=== PATIENT | male | born 2000 | race Caucasian/White ===

== ENCOUNTER 2023-02-06 13:32 | Outpatient (AMB) | payer BC, SELFPAY ==
--- NOTE | 2023-02-06 15:58 | MHC.OFFWIV ---
Intake Vital Signs 02/06/23 16:07 Height 6 ft 3 in Weight 202 lb 8 oz BMI 25.3 BP 132/66 Blood Pressure Location Lt brachial Position Sitting Pulse 91 Pulse Source Pulse Oximeter Temp 98.1 F Temp Source Oral Pulse Oximetry (%) 99 Oxygen Delivery Method Room Air Intake Visit Reasons: EP right wrist sprain Intake Note: Patient is here today for Rt wrist , patient states he was skateboarding and fell on it. Also pt states he's unable to work due to his wrist hurting. Patient Tobacco Use Status: Never used Tobacco Allergies From ROCEPHIN Allergy (Unknown, Uncoded 02/08/23 09:51) UNKNOWN Rocephin Allergy (Unknown, Uncoded 02/08/23 09:51) Dizziness Medication List - Last Reconciled 02/08/23 by Maurice Meraz MD No Known Home Meds Do you need a note to return to daycare/school/sports/work: Yes HPI EP right wrist sprain HPI Details 22-year-old male presents to the office for a sick visit. The was skateboarding and slipped. He fell on his right outstretched hand. Subsequently, he has been having pain and discomfort over the right hand and wrist. 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 [facility] Social History Patient Tobacco Use Status: Never used Tobacco Physical Exam Vital Signs: Last Vital Signs Temp 98.1 F 02/06/23 16:07 Pulse 91 02/06/23 16:07 BP 132/66 02/06/23 16:07 Pulse Ox 99 02/06/23 16:07 Oxygen Delivery Method Room Air 02/06/23 16:07 BMI result Body Mass Index 25.3 Extrem Other: Right hand: Wrist: Minimal discomfort and tenderness over the middle of the wrist. Full flexion and extension of the hand at the wrist elicits minimal discomfort. No tenderness in the anatomical snuffbox. Assessment & Plan Assessment & Plan (1) Sprain of left wrist: Code(s): S63.502A - Unspecified sprain of left wrist, initial encounter Plan X-ray images were personally reviewed. No fractures seen. Patient was encouraged to use a wrist brace. Note for work given. Anti-inflammatories prescribed. Orders: Orders XR wrist RT min 3V 02/06/23 S63.501A - Unspecified sprain of right wrist, initial encounter Coding Level of Care Code Est Pt Level 4 (56542) Diagnoses Sprain of left wrist S63.502A
[2023-02-06 16:07] VITALS: BP 132/66; PULSE 91; TEMP 36.7; O2SAT 99; BMI 25.3
== END 2023-02-06 16:49 | disposition home or self-care (01) ==
PROVIDERS: PCP Pediatrics; Visit Provider Internal Medicine
DX: S63.502A Unspecified sprain of left wrist, initial encounter (principal)
CPT/HCPCS: 99214

== ENCOUNTER 2023-02-06 16:29 | Outpatient (REF) | payer BC, SELFPAY ==
--- NOTE | ~2023-02-06 | XR_ITS ---
EXAMINATION: XR WRIST, RIGHT CLINICAL INFORMATION: Sprain COMPARISON: None available. TECHNIQUE: PA, lateral, and oblique views of the right wrist. FINDINGS: The bones and soft tissues are normal. No fracture. Alignment is anatomic with normal joint spaces. No erosions or abnormal soft tissue calcifications. XR/XR wrist RT min 3V IMPRESSION: Normal right wrist.
== END 2023-02-06 16:30 | disposition home or self-care (01) ==
LOC: HO.HMGCX 16:29
PROVIDERS: Visit Provider Internal Medicine
DX: S63.501A Unspecified sprain of right wrist, initial encounter (principal)
CPT/HCPCS: 73110